=== PATIENT | male | born 2005 | race Caucasian/White ===

== ENCOUNTER 2024-04-11 01:49 | Emergency (ER) | payer SELFPAY ==
[~2024-04-11] VITALS: Ht 180.3 cm; Wt 100.0 kg
[2024-04-11 01:55] VITALS: TEMP 98.5
[2024-04-11 02:31] LABS: BASO % 0.3 % (0.0-2.0); EOS # 0.4 K/mm3 (0.0-0.7); EOS % 3.4 % (0.0-4.0); GRAN # 7.7 K/mm3 (1.4-6.5); GRAN % 65.4 % (42.2-75.2); HEMOGLOBIN 15.7 g/dl (12.5-16.1); LYMPH # 2.6 K/mm3 (1.2-3.4); LYMPH % 22.5 % (20.0-51.0); MEAN CELL VOLUME 82 fl (80.0-95.0); MEAN CORPUSCULAR HEMOGLOBIN 29 pg (26-32); MEAN CORPUSCULAR HGB CONC 36 g/dl (33.0-37.0); MEAN PLATELET VOLUME 10.3 fl (7.4-10.4); MONO % 8.2 % (1.7-9.3); PLATELET COUNT 180 K/mm3 (130-400); RED BLOOD COUNT 5.34 M/mm3 (4.20-5.60); REDCELL DISTRIBUTION WIDTH-CV 12.3 % (11.5-14.5)
[2024-04-11 02:49] LABS: PH 5.5 (5.0-8.5); URINE APPEARANCE CLEAR (CLEAR/HAZY); URINE BLOOD NEGATIVE (NEGATIVE); URINE COLOR YELLOW (YELLOW); URINE GLUCOSE NEGATIVE (NEGATIVE); URINE KETONE NEGATIVE (NEGATIVE); URINE NITRATE NEGATIVE (NEGATIVE); URINE PROTEIN(semi-quant) NEGATIVE (NEGATIVE); URINE UROBILINOGEN 0.2 E.U/dL (0.2-1.0)
[2024-04-11 02:51] LABS: ALANINE AMINOTRANSFERASE 38 U/L (0-55); ALBUMIN 3.9 g/dL (3.5-5.0); ALCOHOL(ethanol),MEDICAL < 10 mg/dL (0-10); ALKALINE PHOSPHATASE 70 U/L (40-150); ANION GAP 10 mmol/L (7-16); AST,SGOT 17 U/L (5-34); BILIRUBIN,TOTAL 0.3 mg/dL (0.2-1.2); BLOOD UREA NITROGEN 13 mg/dL (8-21); CHLORIDE 110 mEq/L (98-107); CREATININE, serum 1.11 mg/dL (0.72-1.25); GLUCOSE 109 mg/dL (70-99); POTASSIUM 3.9 mEq/L (3.5-4.5); SALICYLATE < 5.0 mg/dL (15.0-30.0); SODIUM 142 mEq/L (136-145); TOTAL PROTEIN 7.2 g/dl (6.2-8.1)
[2024-04-11 02:59] LABS: TRICYCLIC ANTIDEPRESS URINE NEGATIVE (NEGATIVE)
[2024-04-11 03:00] LABS: COLLECTION METHOD CLEAN CATCH
[2024-04-11 05:28] VITALS: BP 150/89; PULSE 88
== END 2024-04-11 05:56 | disposition home or self-care (01) ==
LOC: COL.ER 01:49
PROVIDERS: Emergency Medicine
DX: F32.A Depression, unspecified (principal)